=== PATIENT | male | born 1960 | race Caucasian/White ===

== ENCOUNTER 2021-12-05 15:22 | Emergency (ER) | payer OTHER ==
[~2021-12-05] VITALS: Ht 175.3 cm; Wt 99.8 kg
[2021-12-05 15:22] VITALS: BP 126/74
[2021-12-05] MEDS ORDERED: LIDOCAINE 1% HCL (LOCAL ANESTH.) INJ 20ML MDV IJ ONE (16:15)
== END 2021-12-05 16:46 | disposition home or self-care (01) ==
LOC: ER 15:22
DX: S01.01XA Laceration without foreign body of scalp, initial encounter (principal); W26.8XXA Contact with other sharp object(s), not elsewhere classified, initial encounter; Y93.89 Activity, other specified; Y92.89 Other specified places as the place of occurrence of the external cause; Y99.8 Other external cause status
CPT/HCPCS: 12002; 99282; J2001

== ENCOUNTER 2021-12-16 11:08 | Emergency (ER) | payer OTHER ==
[~2021-12-16] VITALS: Ht 175.3 cm; Wt 99.8 kg
[2021-12-16 12:30] VITALS: BP 125/82
== END 2021-12-16 14:02 | disposition home or self-care (01) ==
LOC: ER 11:08
DX: S01.01XD Laceration without foreign body of scalp, subsequent encounter (principal); X58.XXXD Exposure to other specified factors, subsequent encounter